=== PATIENT | female | born 1975 | race Hispanic/Latino ===

== ENCOUNTER 2018-04-14 13:32 | Outpatient (CLI) | payer BC ==
--- NOTE | 2018-04-16 10:54 | MMO ---
BILATERAL DIGITAL SCREENING MAMMOGRAMS: History: 42-year-old female presents for digital screening mammography. Comparison: 11-09-15 This study is interpreted with the assistance of computer aided detection. FINDINGS: The breasts are heterogeneously dense which can obscure small masses. Stable typically benign calcifi cations. Multiple bilateral stable parenchymal density asymmetries. IMPRESSION: BIRADS category 2 - benign findings. Continued routine screening. POS: [facility]UL
== END 2018-04-14 13:33 | disposition home or self-care (01) ==
LOC: SCSMAMMO 13:32
PROVIDERS: ATTEND Nurse Practitioner Adult Health
DX: Z12.31 Encounter for screening mammogram for malignant neoplasm of breast (principal)
CPT/HCPCS: 77067